=== PATIENT | female | born 1945 | race Caucasian/White ===

== ENCOUNTER 2024-07-18 15:50 | Emergency (ER) | payer MEDICARE, OTHER, SELFPAY ==
[2024-07-18 15:51] VITALS: BP 153/82
--- NOTE | 2024-07-18 16:22 | ED.GENMED ---
History of Present Illness
<Ynes Nicole PA-C - Last Filed: 07/18/24 20:31>
General
Chief Complaint: Eye Problems
Source: patient
Exam Limitations: none
Time Seen by Provider: 07/18/24 16:22
Nursing documentation reviewed up to this point in time: agreed with
History of Present Illness
History of Present Illness:
This is a 79-year-old female history of hypertension, hyperlipidemia dementia comes from [facility] very pleasantly confused at her baseline presents to the emergency department today with bilateral eye redness starting 3 days ago. Patient notes
that he also feels hot and tender around each eye bilaterally. She denies any trauma to the eye. Patient is somewhat limited historian due to her dementia. In discussion with [facility], patient has not been complaining about her
eyes to the staff and it does not appear that patient has had any visual disturbances or loss of vision. Patient denies any recent URI symptoms such as cough, shortness of breath, denies any chest pain. She is not recall ever having this problem
before. Staff also notes drainage from both eyes. She has not had any fevers or chills.
Past History
<Ynes Nicole PA-C - Last Filed: 07/18/24 20:31>
Past History
ED Past Medical History: GERD, HTN and Hypercholesterolemia
ED Past Surgical History: None
Social History
Tobacco: Smoker
Alcohol: Occasional
Drug: None
Personal: Single
Living: alone
Review of Systems
<Ynes Nicole PA-C - Last Filed: 07/18/24 20:31>
Review of Systems
All Other Systems: ROS reviewed and negative except as documented in HPI and ROS
Phy Exam
<Ynes Nicole PA-C - Last Filed: 07/18/24 20:31>
Physical Exam
Physical Exam:
General: Patient is well appearing and in no acute distress; non-toxic
Skin: Small area of warmth and erythema on both upper eyelids bilaterally
Head: Normocephalic, atraumatic
Eyes: Bilateral scleral injection. Sclera non-icteric. EOMs intact. PERRLA.
Throat: Uvula midline, no pharyngeal erythema
Cardiac: Regular rate and rhythm, no murmurs
Pulm: Normal respiratory effort
Neuro: CN II-XII intact, no focal neurologic deficits.
Psychiatric: Appropriate mood and affect.
Course
<Ynes Nicole PA-C - Last Filed: 07/18/24 20:31>
Orders/Labs/Results
Orders:
Orders
07/18/24 18:14
Amoxicillin 875 mg/Clav 125 mg [Augmentin 875 mg/125 mg] 1 tablet PO NOW STA
07/18/24 18:30
Ofloxacin [Ocuflox] See Dose Instructions OPHTH QID
07/18/24 22:00
Ofloxacin [Ocuflox] See Dose Instructions OPHTH QID
Vital Signs
Initial and Last Documented VS:
Initial Vital Signs
Temp Pulse Resp BP Pulse Ox
98.9 F 94 18 153/82 99
07/18/24 15:51 07/18/24 15:51 07/18/24 15:51 07/18/24 15:51 07/18/24 15:51
Last Documented Vital Signs
Temp Pulse Resp BP Pulse Ox
98.5 F 97 17 126/83 98
07/18/24 19:11 07/18/24 19:11 07/18/24 19:11 07/18/24 19:11 07/18/24 19:11
<Juice Colunga DO - Last Filed: 07/18/24 18:00>
Orders/Labs/Results
Orders:
Orders
07/18/24 18:14
Amoxicillin 875 mg/Clav 125 mg [Augmentin 875 mg/125 mg] 1 tablet PO NOW STA
07/18/24 18:30
Ofloxacin [Ocuflox] See Dose Instructions OPHTH QID
07/18/24 22:00
Ofloxacin [Ocuflox] See Dose Instructions OPHTH QID
Vital Signs
Initial and Last Documented VS:
Initial Vital Signs
Temp Pulse Resp BP Pulse Ox
98.9 F 94 18 153/82 99
07/18/24 15:51 07/18/24 15:51 07/18/24 15:51 07/18/24 15:51 07/18/24 15:51
Last Documented Vital Signs
Temp Pulse Resp BP Pulse Ox
98.5 F 97 17 126/83 98
07/18/24 19:11 07/18/24 19:11 07/18/24 19:11 07/18/24 19:11 07/18/24 19:11
<Ynes Nicole PA-C - Last Filed: 07/18/24 20:31>
MDM/Problems Addressed
Differential Diagnosis Includes:
Differentials include viral conjunctivitis, bacterial colitis, allergic conjunctivitis, preseptal cellulitis,
MDM/Problems Addressed:
79-year-old female with past medical history of hypertension hyperlipidemia severe dementia presents emergency department today from for concerns of bilateral eye redness. She has no visual changes. Physical exam somewhat limited
secondary to dementia however patient is able to indicate how many fingers I am holding up from a distance and there has been no obvious visual complaints or troubles per staff at . She is afebrile. Suspect bacterial conjunctivitis with
possible component of surrounding developing cellulitis. Will start patient on eye drops and augmentin. Patient stable for discharge.
Chronic conditions affecting care:
Hypertension, hyperlipidemia, GERD, abdomen
<Ynes Nicole PA-C - Last Filed: 07/18/24 20:31>
*Pulse Oximetry
Patient hypoxic: no
*Critical Care Note
Total Time (30-74mins, 75-104mins- exclusive of procedures): Not Applicable
Data Reviewed
Review of Other/Old Records Reveals: Records (Reviewed ER physician documentation from 07/05/2023 patient seen for asymptomatic hypertension discharged with unremarkable workup reviewed discharge summary from 10/23/2022 patient seen for pancreatitis)
Source: patient and records
<Ynes Nicole PA-C - Last Filed: 07/18/24 20:31>
Patient Management
Escalation/DeEscalation of care consider admission/obs:
Admit not indicated, patient stable for discharge and outpatient ophthalmology
ED Attending Note
<Ynes Nicole PA-C - Last Filed: 07/18/24 20:31>
-
Portions of this chart may have been created with voice recognition software.� Occasional wrong word or��sound alike� substitutions may have occurred due to the inherent limitations of voice recognition software.
<Juice Colunga, - Last Filed: 07/18/24 18:00>
ED Attending Note
Patient seen and examined by attending physician: Yes
I performed the substantive portion of visit, reviewed & personally made and approve the management plan that is documented in note by myself or MARCIAL.: Yes
Discharge Plan
Departure
Patient Disposition: Home (Routine Discharge)
Date of Disposition: 07/18/24
Time of Disposition: 18:17
Patient with high blood pressure during this ER visit?: Yes
Condition: Good
Discharge Problem:
Conjunctivitis
Instructions: Conjunctivitis (Pinkeye) (DC), Cellulitis (skin infection) in adults - ED discharge instructions
Prescriptions:
New
ofloxacin 0.3 % drops
2 drp ophthalmic (eye) QID Qty: 10 0RF
amoxicillin-pot clavulanate 875-125 mg tablet
1 tab PO BID 5 Days Qty: 10 0RF
No Action
hydrochlorothiazide 25 mg Tablet
25 mg PO DAILY
rosuvastatin 5 mg Tablet
5 mg PO DAILY
omeprazole magnesium 20 mg Tablet,Delayed Release (Dr/Ec)
20 mg PO DAILY
losartan 100 mg Tablet
100 mg PO DAILY
levothyroxine 75 mcg Tablet
75 mcg PO DAILY
Referrals:
Kory Cosby MD [Active] - Call in 1-3 days for appt
Christine Malik MD [Family Provider] -
Activity Restrictions/Additional Instructions:
Ofloxacin drops have been sent to your pharmacy. Please instill 4 drops into each eye 4 times daily for 5 days.
Augmentin has been sent to your pharmacy. You received your first dose today. Please take 1 tablet twice daily for 5 days.
Please call the attached number to schedule appointment to see ophthalmology for an outpatient evaluation. Please follow-up with your primary care provider
PLEASE RETURN EMERGENCY DEPARTMENT SHOULD YOU DEVELOP VISION LOSS, BLURRY VISION, NAUSEA VOMITING, FEVERS OR CHILLS, SPREAD OF THE REDNESS, OR ANY OTHER SIGNS OR SYMPTOMS WORRISOME TO YOU
Interventions
Interventions:
*Risk Screen - Suicide Last Done: 07/18/24 15:51
*ED COVID-19 Vaccine History Last Done: 07/18/24 15:54
*Nursing Disposition Last Done: 07/18/24 19:58
Discharge Date and Time
Discharge Date/Time: 07/18/24 19:58
Print Language: [id number]
[2024-07-18] MEDS: OCUFLOX 2 DROP OPHTH (18:22)
[2024-07-18] MEDS: AUGMENTIN 875 MG/125 MG 1 TABLET PO (18:22)
[2024-07-18 18:36] VITALS: BP 126/83
[2024-07-18 19:11] VITALS: BP 126/83
== END 2024-07-18 19:58 | disposition home or self-care (01) ==
LOC: EMR 15:50
PROVIDERS: EMERGENCY PHYSICIAN Emergency Medicine; FAMILY PHYSICIAN Internal Medicine
DX: H10.9 Unspecified conjunctivitis (principal); I10 Essential (primary) hypertension; K21.9 Gastro-esophageal reflux disease without esophagitis; E78.00 Pure hypercholesterolemia, unspecified; G30.9 Alzheimer's disease, unspecified; F02.80 Dementia in other diseases classified elsewhere, unspecified severity, without behavioral disturbance, psychotic disturbance, mood disturbance, and anxiety; F17.200 Nicotine dependence, unspecified, uncomplicated
CPT/HCPCS: 99283

== ENCOUNTER 2024-09-12 12:06 | Emergency (ER) | payer MEDICARE, OTHER, SELFPAY ==
[2024-09-12 12:13] VITALS: BP 180/80
[2024-09-12 12:25] LABS: % Eosinophils 2.9 % (0-6); % Immature Granulocytes 0.2 % (0-0.5); % Lymphocytes 30.4 % (20.5-51.1); % Monocytes 9.4 % (1.7-9.3); % Neutrophils 56.1 % (42.2-75.2); Absolute Basophils 0.1 10^3/uL (0-0.2); Absolute Eosinophils 0.2 10^3/uL (0-0.7); Absolute Lymphocytes 1.6 10^3/uL (1.2-3.4); Absolute Monocytes 0.5 10^3/uL (0.1-0.6); Absolute Neutrophils 2.9 10^3/uL (1.4-6.5); Hematocrit 43.8 % (37.0-47.0); Hemoglobin 14.4 g/dL (12.0-16.0); Mean Corp Hgb Conc. 32.9 g/dL (33.0-37.0); Mean Corpuscular Hgb 29.3 pg (27.0-31.0); Mean Corpuscular Volume 89.2 fL (81.0-99.0); Mean Platelet Volume 11.2 fL (7.4-10.4); Nucleated Red Blood Cells % 0 %; Platelet Count 242 10^3/uL (130-400); Red Blood Cell Count 4.91 10^6/uL (4.20-5.40); Red Cell Dist. Width 14.3 % (11.5-14.5); White Blood Cell Count 5.2 10^3/uL (4.8-10.8)
[2024-09-12 12:41] LABS: ALT (SGPT) 15 U/L (0-35); AST (SGOT) 21 U/L (14-36); Albumin 4.5 g/dl (3.5-5.0); Alkaline Phosphatase 115 U/L (38-126); Blood Urea Nitrogen 25 mg/dl (7-17); Calcium 10.9 mg/dl (8.4-10.2); Carbon Dioxide 29 mmol/L (22-30); Chloride 105 mmol/L (98-107); Glucose 79 mg/dl (70-99); Potassium 4.2 mmol/L (3.5-5.1); Sodium 142 mmol/L (135-145); Total Bilirubin 0.8 mg/dl (0.2-1.3); Total Protein 7.7 g/dl (6.3-8.2); eGFR 50.48
--- NOTE | 2024-09-12 12:41 | ED.GENMED ---
History of Present Illness
General
Chief Complaint: Change in Mental Status
Time Seen by Provider: 09/12/24 12:13
History of Present Illness
History of Present Illness:
79-year-old female with history of dementia and high blood pressure presenting to the emergency department for apparent increasing aggression. Patient arrives from her nursing facility where she was reportedly aggressive with staff. Patient on
arrival had acute medical complaints. She is a limited historian secondary to her dementia. No report of recent fall or trauma. No report of recent fever or infection per nursing facility. No additional history obtained at this time
Past History
Past History
ED Past Medical History: GERD, HTN and Hypercholesterolemia
ED Past Surgical History: None
Social History
Tobacco: Smoker
Alcohol: Occasional
Drug: None
Personal: Single
Living: alone
Phy Exam
Physical Exam
Physical Exam:
General: Well-appearing, no clinical signs of dehydration, nontoxic and in no acute distress
HEENT: protecting airway
Neck: appears supple
CV: Normal heart rate, regular rhythm
Resp: No accessory muscle use, no increased work of breathing, lungs clear to auscultation bilaterally
Abd: Soft and non-distended, no tenderness to palpation
Extremities: No deformities, no swelling
Neuro: alert, no focal neurologic deficit
: deferred
Rectal: deferred
Psych: Agitated
Skin: Intact
Course
Orders/Labs/Results
Orders:
Orders
09/12/24 12:15
CT Head W/o Iv Contrast Urgent
Comment:
Reason For Exam: confusion
Case Management Consult ONCE
Case Management Consult: Discharge Planning
09/12/24 12:16
Complete Blood Count/With Diff Urgent
Comprehensive Metabolic Panel Urgent
09/12/24 12:44
Urinalysis Reflex To Culture Urgent
Date Specimen was Collected: 09/12/24
Time Specimen was Collected: 12:25
Urine Microscopic Reflex Cult Urgent
Abnormal Lab Results
09/12/24 09/12/24
12:16 12:44
MCHC 32.9 L g/dL
(33.0-37.0)
MPV 11.2 H fL
(7.4-10.4)
Monocytes % 9.4 H %
(1.7-9.3)
BUN 25 H mg/dl
(7-17)
Creatinine 1.1 H mg/dL
(0.6-1.0)
Calcium 10.9 H mg/dl
(8.4-10.2)
Ur Occult Blood Reflex 2+ A
(Negative)
09/12/24 12:16
09/12/24 12:16
Vital Signs
Initial and Last Documented VS:
Initial Vital Signs
Temp Pulse Resp BP Pulse Ox
98.3 F 68 18 180/80 100
09/12/24 12:13 09/12/24 12:13 09/12/24 12:13 09/12/24 12:13 09/12/24 12:13
Last Documented Vital Signs
Temp Pulse Resp BP Pulse Ox
98.3 F 68 18 180/80 100
09/12/24 12:13 09/12/24 12:13 09/12/24 12:13 09/12/24 12:13 09/12/24 12:13
MDM/Problems Addressed
MDM/Problems Addressed:
79-year-old female with history of dementia presenting for increased aggression from her assisted living facility. Vital signs are significant for high blood pressure, however patient agitated upon arrival.
On exam, patient is resting comfortably, no acute distress. Unremarkable exam without any physical signs of trauma. She is afebrile, nontoxic. Benign cardiac and pulmonary exam. No tenderness to abdomen. Patient moving all extremities equally.
At this time suspect decompensated Alzheimer's disease. Will screen with laboratory analysis and CT brain imaging as well as urinalysis to ensure no additional cause for patient change in behavior. Per assisted living facility, patient is off of
her baseline, is not usually as aggressive. Was aggressive with resident last evening
12:45 - Did call and update daughter. Daughter notes within the past month patient has been more agitated and uncooperative. She also has had difficulty sleeping so her doctor started a new medication to help her sleep. She notes that she is up
all night.
14:00 -patient's workup is unremarkable. Negative head CT. Normal laboratory analysis, no sign of urine infection. Feel stable for discharge back to facility. Will arrange transportation
*Critical Care Note
Total Time (30-74mins, 75-104mins- exclusive of procedures): Not Applicable
ED Attending Note
-
Portions of this chart may have been created with voice recognition software.� Occasional wrong word or��sound alike� substitutions may have occurred due to the inherent limitations of voice recognition software.
Discharge Plan
Departure
Prescriptions:
No Action
hydrochlorothiazide 25 mg Tablet
25 mg PO DAILY
rosuvastatin 5 mg Tablet
5 mg PO DAILY
omeprazole magnesium 20 mg Tablet,Delayed Release (Dr/Ec)
20 mg PO DAILY
losartan 100 mg Tablet
100 mg PO DAILY
levothyroxine 75 mcg Tablet
75 mcg PO DAILY
ofloxacin 0.3 % drops
2 drp ophthalmic (eye) QID Qty: 10 0RF
amoxicillin-pot clavulanate 875-125 mg tablet
1 tab PO BID 5 Days Qty: 10 0RF
Referrals:
Christine Malik MD [Family Provider] -
Interventions
Interventions:
*Risk Screen - Suicide Last Done: 09/12/24 12:15
*General Assessment Last Done: 09/12/24 12:15
*Neglect/Abuse Screening Last Done: 09/12/24 12:15
ED- Neurological Assessment Last Done: 09/12/24 12:21
Discharge Date and Time
Print Language: WELSH
--- NOTE | 2024-09-12 12:47 | CM ---
KHALIDA reviewed medical records. KHALIDA spoke with AUGUST Ortega at [facility]. Shannon reports that patient has been increasingly more aggressive including aggression towards other residents, and verbally fighting with staff. Patient's baseline is pleasantly
confused, and patient has been easily redirectable.
CM updated ED physician.
[2024-09-12 13:06] LABS: Urine Albumin Negative (Neg - Trace); Urine Bilirubin Negative (Negative); Urine Character Clear (Clear); Urine Color Yellow; Urine Glucose Negative (Negative); Urine Ketone Negative (Negative); Urine Leukocyte Negative (Negative); Urine Nitrite Negative (Negative); Urine Occult Blood 2+ (Negative); Urine Specific Gravity 1.015 (<1.030); Urine Urobilinogen 1+ (Neg - 1+)
[2024-09-12 13:36] LABS: Urine Red Blood Cell 0-2 /HPF (0-2); Urine Squamous Cell 0-2 /LPF (Few); Urine White Cell 0-2 /HPF (0-5)
== END 2024-09-12 14:57 | disposition home or self-care (01) ==
LOC: EMR 12:06
PROVIDERS: EMERGENCY PHYSICIAN Student in an Organized Health Care Education/Training Program; FAMILY PHYSICIAN Internal Medicine
DX: F03.911 Unspecified dementia, unspecified severity, with agitation (principal); F17.200 Nicotine dependence, unspecified, uncomplicated
CPT/HCPCS: 99284; 70450; 80053; 81003; 81015; 85025